=== PATIENT | male | born 1975 | race Caucasian/White ===

== ENCOUNTER 2020-04-19 05:01 | Day surgery (SDC) | payer OTHER ==
[2020-02-16 16:45] VITALS: BMI 43.5
[2020-04-19] MEDS ORDERED: LIDOCAINE HCL 1%, 10 MG/ML (20ML VIAL) ONE (11:24)
[2020-04-19] MEDS ORDERED: MIDAZOLAM HCL 2 MG/2 ML SINGLE DOSE VIAL ONE (12:09)
--- NOTE | 2020-04-19 12:16 | HP ---
History & Physical Update - History History: No Change - Physical Physical: No Change - Assessment Assessment: No Change - Plan Plan: No Change
--- NOTE | 2020-04-19 12:18 | OP ---
Operative Note - Note: Operative Date: 04/19/20 Pre-Operative Diagnosis: elective sterilization Operation: bilateral vasectomy Findings: normal anatomy Post-Operative Diagnosis: Same as Pre-op Surgeon: Joesph Dominguez Anesthesiologist/[facility] ATTENDANT: Jose Saavedra Anesthesia: General, Local Estimated Blood Loss (mls): 0 Operative Report Dictated: Yes
[2020-04-19] MEDS ORDERED: PROPOFOL 20 ML ONE (12:29)
[2020-04-19] MEDS ORDERED: ceFAZolin SODIUM 1 GM VIAL IVPB ONE (12:35)
[2020-04-19] MEDS ORDERED: LIDOCAINE HCL 1%, 10 MG/ML (20ML VIAL) NR ONE ×2 (12:40)
[2020-04-19] MEDS ORDERED: BUPIVACAINE HCL/PF 0.5% (5 MG/ML) 30 ML VIAL IJ ONE ×2 (12:40)
[2020-04-19] MEDS ORDERED: ONDANSETRON 4 MG/2 ML VIAL IVPUSH PRN (13:14)
[2020-04-19] MEDS ORDERED: PROMETHAZINE HCL 25 MG/1 ML VIAL IVPB PRN (13:14)
[2020-04-19] MEDS ORDERED: LACTATED RINGERS SOLUTION 1,000 ML IV SCH (13:15)
[2020-04-19 14:04] VITALS: TEMP 97.3
[2020-04-19 15:11] VITALS: BP 107/63; PULSE 72
--- NOTE | 2020-04-20 21:41 | OP ---
DATE OF OPERATION: 04/19/2020 PREOPERATIVE DIAGNOSIS: Elective sterilization. POSTOPERATIVE DIAGNOSIS: Elective sterilization. PROCEDURE: Bilateral vasectomy. SURGEON: Joesph Molina MD LIBRARY HELPER: None. ANESTHESIA: General via laryngeal mask plus local. ANESTHESIOLOGIST: Jose Saavedra MD SPECIMENS: Portion of bilateral vas deferens. CULTURES: None. DRAINS: None. ESTIMATED BLOOD LOSS: None. COMPLICATIONS: None. DESCRIPTION OF PROCEDURE: Patient was brought in the operating room, placed on the operating table in supine position. After administration of intravenous sedation, general anesthesia was administered via laryngeal mask. Intravenous antibiotics were administered. Sequential compression devices were placed. Patient was placed in supine position. The genitals were prepped and draped in usual sterile manner. The right vas deferens was isolated between thumb and forefinger, and a 1-cm transverse, upper scrotal incision was made overlying the vas deferens , carried down through the dartos layer. The vas deferens was grasped with a vasectomy clamp, elevated into the wound. The sheath of the vas deferens was incised longitudinally, and then, using a mosquito clamp, it was dissected out, isolated, clamped, and then divided. A segment was excised, sent to Pathology as specimen. The lumen of the vas deferens was cauterized with needle-tip electrode, needle-tip Bovie tip both proximally and distally. Now, both cut ends were ligated with 0 Vicryl ligatures. Hemostasis was assured. The wound was closed with interrupted 4-0 chromic vertical mattress suture and Dermabond. In an identical manner, the left vasectomy was done. Fluffs and a scrotal support were applied. He tolerated the procedure well. He was awoken from anesthesia in the operating room and transferred to Recovery in stable condition. JOESPH MOLINA M.D. [id number]
--- NOTE | 2020-04-23 11:20 | PATH ---
Surgical Pathology Report Patient Name: ELIZABETH NERI Med. Rec. #: [id number] /Age/Gender: 1975 (Age: 45) / M Account: [id number] Location: [facility] SURGICAL Taken: 04/19/2020 Received: 04/19/2020 Reported: 04/23/2020 Physicians: Joesph Dominguez M.D. Specimen(s) Received A: PORTION OF RIGHT VAS DEFERENS B: PORTION OF LEFT VAS DEFERENS Clinical History vasectomy Final Diagnosis A. PORTION OF VAS DEFERENS, RIGHT, VASECTOMY: FULL LUMINAL PORTION OF UNREMARKABLE VAS DEFERENS. B. PORTION OF VAS DEFERENS, LEFT, VASECTOMY: FULL LUMINAL PORTION OF UNREMARKABLE VAS DEFERENS. Electronically Signed Antoinette Chavez M.D. Gross Description A. Received in formalin labelled "portion of right vas deferens" is a 0.3 cm in length and 0.3 cm in diameter tubular portion of tissue consistent with a portion of vas deferens. The specimen is totally submitted in one cassette. C. Received in formalin labelled "portion of left vas deferens" is a 0.5 cm in length and 0.3 cm in diameter tubular portion of tissue consistent with a portion of vas deferens. The specimen is totally submitted in one cassette. ADAMARIS/04/19/2020 lux/04/19/2020
== END 2020-04-19 15:22 | disposition home or self-care (01) ==
LOC: JASU-SURG 05:01
PROVIDERS: ATTEND Urology
PROC: 0VTQ0ZZ Resection of Bilateral Vas Deferens, Open Approach (ICD-10-PCS; principal; 2020-04-19 12:00)
DX: Z30.2 Encounter for sterilization (principal)
CPT/HCPCS: 88302-TC; 94760

== ENCOUNTER 2021-06-25 10:05 | Emergency (ER) | payer OTHER ==
[2021-06-25 10:12] VITALS: BP 155/90; PULSE 76; TEMP 97.8; BMI 38.7
== END 2021-06-25 12:10 | disposition home or self-care (01) ==
LOC: JER 10:05
DX: S31.31XA Laceration without foreign body of scrotum and testes, initial encounter (principal); W26.8XXA Contact with other sharp object(s), not elsewhere classified, initial encounter; Y93.E8 Activity, other personal hygiene
CPT/HCPCS: 99281-25

== ENCOUNTER 2021-07-31 19:23 | Emergency (ER) | payer OTHER ==
[2021-07-31 19:44] VITALS: BP 106/66; PULSE 72; TEMP 98; BMI 35.5
[2021-07-31] MEDS ORDERED: ACETAMINOPHEN 1000 MG/100 ML VIAL IVPB ONE (20:07)
[2021-07-31] MEDS ORDERED: SODIUM CHLORIDE 0.9% 500 ML INFUS.BAG IV ONE (20:07)
[2021-07-31] MEDS ORDERED: MAG HYDROX/AL HYDROX/SIMETH -MYLANTA- ORAL SUSPENSION PO ONE (20:07)
[2021-07-31] MEDS ORDERED: FAMOTIDINE 20 MG/50 ML IVPB 20 MG/50 ML MG IVPB ONE ×2 (20:07→20:48)
[2021-07-31] MEDS ORDERED: ONDANSETRON 4 MG/2 ML VIAL IVPUSH ONE (20:07)
[2021-07-31] MEDS ORDERED: MAG HYDROX/AL HYDROX/SIMETH 30 ML UNIT-DOSE CUP ONE (20:47)
[2021-07-31] MEDS ORDERED: ACETAMINOPHEN INJECTION 100 ML IVPB ONE (20:47)
[2021-07-31] MEDS ORDERED: ONDANSETRON 4 MG/2 ML VIAL ONE (20:48)
[2021-07-31 21:20] LABS: BASO % 0.1 % (0-2.0); EOS % 0.4 % (0-4.5); HEMATOCRIT 46.8 % (35.4-49); HEMOGLOBIN 15.5 GM/dL (11.7-16.9); LYMPH % 4.2 % (8-40); MCH 30.8 pg (25.7-33.7); MCHC 33.2 g/dl (32.0-35.9); MEAN CELL VOLUME 92.9 fl (80-96); MEAN PLT VOLUME 8.4 fl (7.5-11.1); MONO % 6.4 % (3.8-10.2); NEUT % 88.9 % (42.8-82.8); PLATELET COUNT 223 10^3/uL (134-434); RBC 5.04 M/mm3 (4.00-5.60); RDW 14.6 % (11.9-15.9); WHITE BLOOD COUNT 12.9 K/mm3 (4.0-10.0)
[2021-07-31 21:41] LABS: CHLORIDE 105 mmol/L (98-107); SODIUM 139 mmol/L (136-145)
[2021-07-31 21:43] LABS: ALBUMIN 4.4 g/dl (3.4-5.0); ANION GAP 10 MMOL/L (8-16); BLOOD UREA NITROGEN 19.8 mg/dL (7-18); CALCIUM 9.5 mg/dL (8.5-10.1); CO2 24 mmol/L (21-32); GLUCOSE,RANDOM 177 mg/dL (74-106)
[2021-07-31 21:45] LABS: CREATININE 1.3 mg/dL (0.55-1.3)
[2021-07-31 21:47] LABS: SGOT/AST 38 U/L (15-37); SGPT/ALT 84 U/L (13-61)
[2021-07-31 21:48] LABS: BILIRUBIN,TOTAL 0.4 mg/dL (0.2-1); TOT PROT 7.5 g/dl (6.4-8.2)
[2021-07-31 21:49] LABS: ALK PHOS 66 U/L (45-117)
== END 2021-08-01 03:35 | disposition home or self-care (01) ==
LOC: JER 19:23
PROC: 3E033NZ Introduction of Analgesics, Hypnotics, Sedatives into Peripheral Vein, Percutaneous Approach (ICD-10-PCS; principal; 2021-07-31)
PROC: 3E033GC Introduction of Other Therapeutic Substance into Peripheral Vein, Percutaneous Approach (ICD-10-PCS; 2021-07-31)
PROC: 3E033GC Introduction of Other Therapeutic Substance into Peripheral Vein, Percutaneous Approach (ICD-10-PCS; 2021-07-31)
DX: K44.9 Diaphragmatic hernia without obstruction or gangrene (principal); R10.13 Epigastric pain
CPT/HCPCS: 36415; 74160-TC; 80053; 82550; 82553; 83690; 84484; 85025; 93005; 93010; 99285-25; J0131; Q9967

== ENCOUNTER 2021-10-20 13:48 | Emergency (ER) | payer OTHER ==
[2021-10-20 14:10] VITALS: BP 129/76; PULSE 95; TEMP 98.4; BMI 37.1
[2021-10-20] MEDS ORDERED: KETOROLAC TROMETHAMINE 30 MG/1 ML VIAL IM ONE (15:49)
[2021-10-20] MEDS ORDERED: KETOROLAC TROMETHAMINE 30 MG/1 ML VIAL ONE (15:52)
== END 2021-10-20 17:19 | disposition home or self-care (01) ==
LOC: JERFT 13:48
PROC: 3E023GC Introduction of Other Therapeutic Substance into Muscle, Percutaneous Approach (ICD-10-PCS; principal; 2021-10-20)
DX: M25.561 Pain in right knee (principal)
CPT/HCPCS: 73562-TC-RT-FY; 99284-25